=== PATIENT | female | born 1975 | race Caucasian/White ===

== ENCOUNTER 2023-05-03 03:08 | Day surgery (SDC) | payer BC, SELFPAY ==
[2023-04-18 08:17] VITALS: BMI 20.3
--- NOTE | 2023-05-02 14:03 | PM.HPGS ---
History of Present Illness History of Present Illness Consent: Risks, benefits, and alternatives have been discussed and questions answered. Patient agrees to proceed with procedure. Chief complaint: neoplasm screening Narrative: Naomie Miner is a 47 year old female Referred for colon cancer screening. Review of Systems Review of Systems: All systems reviewed & are unremarkable except as noted in HPI and below PMFSH Social History Social History Smoking status: Never smoker Alcohol intake: current Drinks per week: 5 Substance use type: does not use Living arrangements: with family Spiritual care concerns: No Meds Home Medications and Allergies Home Medications Medication Instructions Recorded Confirmed Type No Home Medications 04/18/23 04/18/23 History Allergies Allergy/AdvReac Type Severity Reaction Status Date / Time Sulfa (Sulfonamide Allergy Unknown RASH Verified 05/03/23 08:01 Antibiotics) Exam Const: General: alert Orientation/consciousness: patient oriented x3 Resp: Auscultation: clear to auscultation bilaterally Cardio: Rhythm: regular rhythm GI: GI Palp: Yes Soft to palpation and No Tenderness to palpation present (GI) Neuro: General: patient oriented x3 Assessment and Plan Assessment and plan (1) Colon cancer screening: Code(s): Z12.11 - Encounter for screening for malignant neoplasm of colon Status: Acute Assessment and Plan: Colonoscopy with possible biopsy or polypectomy or cautery or injection of substances.
[2023-05-03 08:02] VITALS: BP 93/70; PULSE 81; RESP 20; TEMP 36.6; O2SAT 99
--- NOTE | 2023-05-03 08:10 | P.PNAN_ITS ---
Anes - Initial Pre Proc Eval Procedure: Operation Date: 05/03/23 09:00 Proposed Procedures p Screening Colonoscopy - Luis Miguel Christensen MD Date/Time: 05/03/23 08:10 Surgeon: Luis Miguel Christensen MD Pre Op Diagnosis: neoplasm screening Patient Data Age: 47 Gender: F Height: 1.7 m Weight: 56.6 kg Last Vital Signs Temp 98 F 05/03/23 08:02 Pulse 81 05/03/23 08:02 Resp 20 05/03/23 08:02 BP 93/70 L 05/03/23 08:02 Pulse Ox 99 05/03/23 08:02 O2 Del Method Room Air 05/03/23 08:02 Allergies Allergy/AdvReac Type Severity Reaction Status Date / Time Sulfa (Sulfonamide Allergy Unknown RASH Verified 05/03/23 08:01 Antibiotics) Home Medications Medication Instructions Recorded Confirmed Type No Home Medications 04/18/23 04/18/23 History Patient hx anesthesia problems: none Family hx anesthesia problems: none Results Review: All pre-operative results and documents have been reviewed as part of the pre-operative evaluation. [facility] Social History Social History Smoking status: Never smoker Alcohol intake: current Drinks per week: 5 Substance use type: does not use Living arrangements: with family Spiritual care concerns: No Anes - Eval Final PreProcedure Day of Procedure 05/03/23 08:10 Patient weight: normal Heart: regular rate and rhythm Lungs: clear to auscultation Airway: Mallampati scale class II Neurological: alert and oriented Last oral intake: >/= 8 hours ASA classification: I Emergent: no Anesthetic plan: proceed Anesthesia type and monitoring: general GIVS and standard monitoring Results Review: All pre-operative results and documents have been reviewed as part of the pre- operative evaluation. Informed Consent: The patient's anesthetic plan and its attendant risks and benefits were discussed with the patient/family/POA. Questions were solicited and answers provided to the satisfaction of the patient/family/POA.
[2023-05-03] MEDS: LACTATED RINGERS 1,000 ML 150 ML IV CONT (08:15)
[2023-05-03] MEDS: SIMETHICONE ORAL SUSPENSION 20 MG/0.3 ML 30 ML BOTTLE 0.6 ML IRRIGATION (08:57)
[2023-05-03 09:05] VITALS: BP 84/55; PULSE 70; RESP 14; O2SAT 99
[2023-05-03 09:15] VITALS: BP 102/60; PULSE 71; RESP 23; O2SAT 100
[2023-05-03 09:25] VITALS: BP 104/68; PULSE 72; RESP 16; O2SAT 100
== END 2023-05-03 09:28 | disposition home or self-care (01) ==
PROVIDERS: PCP Internal Medicine; Visit Provider Internal Medicine Gastroenterology
PROC: 0DJD8ZZ Inspection of Lower Intestinal Tract, Via Natural or Artificial Opening Endoscopic (ICD-10-PCS; CPT 45378; principal; 2023-05-03 09:00)
DX: Z12.11 Encounter for screening for malignant neoplasm of colon (principal)
CPT/HCPCS: 45378; J2704; J7120

== ENCOUNTER 2024-08-08 07:47 | Outpatient (CLI) | payer BC, SELFPAY ==
--- NOTE | ~2024-08-08 | US_ITS ---
EXAMINATION: US abdomen limited DATE: 08/08/2024 08:18 INDICATION: ABN LAB RESULTS TECHNIQUE: Multiple grayscale and Doppler ultrasound images of limited portions of the abdomen were o btained. COMPARISON: None available. FINDINGS: The visualized portions of the pancreas are normal. The liver is normal with normal echogen icity and echotexture. No surface nodularity. Normal hepatopetal flow in the main portal vein. The ga llbladder is normal with no abnormal wall thickening, pericholecystic fluid or stones. The common kale e duct measures 3 mm. There was no sonographic Harvey sign. IMPRESSION: Normal limited abdominal ultrasound findings. Reviewed, dictated and finalized at location [facility]
== END 2024-08-08 07:48 | disposition home or self-care (01) ==
LOC: MICIMG 07:48
PROVIDERS: PCP Internal Medicine; Visit Provider Internal Medicine
DX: R89.9 Unspecified abnormal finding in specimens from other organs, systems and tissues (principal)
CPT/HCPCS: 76705

== ENCOUNTER 2024-09-13 08:23 | Emergency (ER) | payer BC, SELFPAY ==
[2024-09-13 08:31] VITALS: BP 119/81; PULSE 84; RESP 18; TEMP 36.8; O2SAT 100
[2024-09-13] MEDS: DACRIOSE EYE IRRIGATION 118 ML BOTTLE LEFT EYE (08:54)
[2024-09-13] MEDS: TETRACAINE HCL 0.5% OPHTH SOLN 4 ML BTL 1 DROP LEFT EYE (08:54)
[2024-09-13] MEDS: FLUORESCEIN SOD 1 MG/STRIP LEFT EYE (08:54)
--- NOTE | 2024-09-13 08:58 | ED_ITS ---
HPI - Eye Problem General Chief complaint: Eye Problems Stated complaint: Eye Irritation Time Seen by Provider: 09/13/24 08:37 Source: patient and RN notes reviewed Mode of arrival: ambulatory Limitations: no limitations History of Present Illness HPI Narrative: Patient presents today complaining of left eye irritation, photophobia, watering, and matting. Symptoms began 2 days ago. Denies vision changes. She has tried some [id number]-[id number] eyedrops without relief. Pain increases when she opens her eye. Denies any injury or trauma to the eye area. Patient wears glasses Related Data Home Medications ?Medication ?Instructions ?Recorded ?Confirmed ?Last Taken ?Type No Home Medications 04/18/23 09/13/24 Unknown History Allergies Allergy/AdvReac Type Severity Reaction Status Date / Time Sulfa (Sulfonamide Allergy Unknown RASH Verified 09/13/24 08:35 Antibiotics) Review of Systems Review of Systems: CONSTITUTIONAL: Denies body aches, fever, chills, or sweats. EYES: Left eye watering, irritation, photophobia ENT: Denies rhinorrhea, congestion, sore throat, or otalgia. CARDIOVASCULAR: Denies chest pain, palpitations, or edema. RESPIRATORY: Denies cough or dyspnea. GASTROINTESTINAL: Denies abdominal pain, nausea, vomiting, or diarrhea. GENITOURINARY: Denies dysuria or hematuria. SKIN: Denies rash, itching, or wounds. MUSCULOSKELETAL: Denies back pain, joint pain, or myalgia. NEUROLOGIC: Denies headache, numbness, tingling, or weakness. PSYCH: Denies depression or anxiety. PMFSH Social History Social History Smoking status: Never smoker Alcohol intake: current Drinks per week: 5 Substance use type: does not use Living arrangements: with family Spiritual care concerns: No Comments At time of signature, I have reviewed and agree with nursing past medical, surgical, social and family history unless otherwise noted. Please see nursing chart for further information. There is no relevant family history pertinent to the presenting complaint Exam Narrative: GENERAL: Well-appearing, well-nourished, and in no acute distress. HEAD: Normocephalic, atraumatic. EYES: EOMI. PERRL. Right eye normal. Left eye: Tearing, mildly injected conjunctiva and mild swelling of the lower lid.+ fluorescein uptake. See procedure note. ENT: Mucous membranes pink and moist. NECK: Normal AROM. CHEST: No respiratory distress. EXTREMITIES: Normal range of motion. No edema. SKIN: Warm, dry, no rash. Capillary refill normal. Normal skin turgor. NEURO: No focal deficits. Alert and oriented x3. Gait steady. PSYCH: Normal affect. No signs of depression or anxiety. Course Course Level of Care: Express Care Visit Vital Signs Vital signs: Vital Signs Temperature 98.2 F 09/13/24 08:31 Pulse Rate 84 09/13/24 08:31 Respiratory Rate 18 09/13/24 08:31 Blood Pressure 119/81 09/13/24 08:31 Pulse Oximetry 100 09/13/24 08:31 Temperature 98.2 F 09/13/24 08:31 Pulse Rate 84 09/13/24 08:31 Respiratory Rate 18 09/13/24 08:31 Blood Pressure 119/81 09/13/24 08:31 Pulse Oximetry 100 09/13/24 08:31 Reviewed Procedures Other Procedure Procedure 1: Other Procedure: Left eye was anesthetized with 1 drop of tetracaine and anesthesia was achieved. The eye was flushed with eye wash. Cornea was dyed with fluorescein and 2 abrasions were noted at the 9 o'clock position of the iris. Pt tolerated procedure well. MDM - Eye Problem MDM Narrative Medical decision making narrative: Two small corneal abrasions noted to the 9 o'clock position of the iris. Patient will be started on some ofloxacin drops and recommend following up with her eye doctor to ensure proper healing. Patient agrees with plan. Anticipatory guidance given. Differential Diagnosis Differential diagnosis: Likely corneal abrasion, conjunctivitis and corneal ulcer Critical Care Time Critical Care Time Critical Care Time: No Discharge Plan Discharge Clinical Impression: Abrasion of cornea, left Qualifiers: Encounter type: initial encounter Qualified Code(s): S05.02XA - Injury of conjunctiva and corneal abrasion without foreign body, left eye, initial encounter Patient Disposition: Home, Self-Care Condition: Stable Instructions: Corneal Abrasion (ED) Additional Instructions: Your exam shows 2 small corneal abrasions. Please use the eyedrops as directed. Try not to rub or scratch your eye as you could make these worse. Take Tylenol or ibuprofen for pain. Please follow-up with your eye doctor within the next week to ensure proper healing. Your blood pressure was elevated above 120/80 today at Urgent Care. This puts you above the threshold for follow up. Please schedule a followup visit with your personal physician as soon as possible, for further evaluation and treatment. Even blood pressure exceeding 120/80 may indicate pre-hypertension. Patient Language: Bel[place]an Prescriptions: New ofloxacin 0.3 % drops 1 drp LEFT EYE QID 7 Days Qty: 5 0RF No Action No Home Medications Follow-up/Referrals: Charlie,MD Andrew [Primary Care Provider] - Time of Disposition: 09:02
== END 2024-09-13 09:05 | disposition home or self-care (01) ==
PROVIDERS: Emergency Provider Nurse Practitioner; PCP Internal Medicine
DX: S05.02XA Injury of conjunctiva and corneal abrasion without foreign body, left eye, initial encounter (principal); X58.XXXA Exposure to other specified factors, initial encounter
CPT/HCPCS: 99213; A9270; G0463

== ENCOUNTER 2025-05-28 21:44 | Emergency (ER) | payer BC, SELFPAY ==
--- OUTSIDE RECORDS SUMMARY | 2014-08-03 02:00 | XMS_ITS | Continuity of Care Document ---
Author Organization [email or web address] Address [address] [place] [address] [address] [place] [address] Phone Care Team Providers Care Dance Director Name Role Phone Aruna PT, MS, Olvin Unavailable Unavailable Procedures Procedure Date PT RE-EVALUATION THERAPEUTIC EXERCISES NEUROMUSCULAR RE-ED HOT/COLD PACK ELECTRIC STIMULATION UNATT THERAPEUTIC EXERCISES NEUROMUSCULAR RE-ED HOT/COLD PACK ELECTRIC STIMULATION UNATT THERAPEUTIC EXERCISES NEUROMUSCULAR RE-ED HOT/COLD PACK ELECTRIC STIMULATION UNATT THERAPEUTIC EXERCISES NEUROMUSCULAR RE-ED MANUAL THERAPY HOT/COLD PACK ELECTRIC STIMULATION UNATT THERAPEUTIC EXERCISES NEUROMUSCULAR RE-ED MANUAL THERAPY HOT/COLD PACK ELECTRIC STIMULATION UNATT THERAPEUTIC EXERCISES NEUROMUSCULAR RE-ED MANUAL THERAPY HOT/COLD PACK ELECTRIC STIMULATION UNATT PT RE-EVALUATION THERAPEUTIC EXERCISES NEUROMUSCULAR RE-ED MANUAL THERAPY HOT/COLD PACK ELECTRIC STIMULATION UNATT THERAPEUTIC EXERCISES NEUROMUSCULAR RE-ED MANUAL THERAPY HOT/COLD PACK ELECTRIC STIMULATION UNATT THERAPEUTIC EXERCISES NEUROMUSCULAR RE-ED MANUAL THERAPY HOT/COLD PACK ELECTRIC STIMULATION UNATT THERAPEUTIC EXERCISES NEUROMUSCULAR RE-ED MANUAL THERAPY HOT/COLD PACK ELECTRIC STIMULATION UNATT THERAPEUTIC EXERCISES MANUAL THERAPY HOT/COLD PACK ELECTRIC STIMULATION UNATT THERAPEUTIC EXERCISES MANUAL THERAPY HOT/COLD PACK ELECTRIC STIMULATION UNATT THERAPEUTIC EXERCISES MANUAL THERAPY HOT/COLD PACK ELECTRIC STIMULATION UNATT THERAPEUTIC EXERCISES MANUAL THERAPY HOT/COLD PACK ELECTRIC STIMULATION UNATT THERAPEUTIC EXERCISES MANUAL THERAPY HOT/COLD PACK ELECTRIC STIMULATION UNA PT EVALUATION THERAPEUTIC EXERCISES MANUAL THERAPY HOT/COLD PACK ELECTRIC STIMULATION UNATT Advance Directives Directive Yes / No Effective Date File Name No Information Encounters Encounter Description Practice Location Reason(s) For Visit Diagnoses Date Provider Providers Copied on Encounter [facility], [id number], tel:[phone] [place] No Information Dec-0 9-201 4 Aruna Bah. [address] [facility], [facility] [address], [place], [facility], [place]. tel: [phone] [facility], [place], [id number], tel:[phone] [place] No Information Dec-0 3-201 4 Israel Coyne. [address] [facility], [address], [place], [facility], [place]. tel: [phone] [facility], [place], [place], [address], [place] tel: [phone] [place] No Information Nov-2 4-201 4 Aruna Olvin. [address] [place] [address], [address], [place], [address], [place]. tel: [phone] [facility] [address], [place], [place], [id number], [place] tel:[phone] [place] No Information Nov-1 9-201 4 Aruna Olvin. [address] [place] [address], [address], [place], [address], [place]. tel: [phone] [facility] [address], [place], [place], [id number], [place] tel:[phone] [place] No Information Nov-1 7-201 4 Aruna Olvin. [address] [place] [address], [address], [place], [address], [place]. tel: [phone] [facility] [address], [place], [place], [id number], [place] tel:[phone] [place] No Information Nov-1 2-201 4 Aruna Olvin. [address] [place] [address], [address], [place], [address], [place]. tel: [phone] [facility] [address], [place], [place], [address], [place] tel:[phone] [place] No Information Nov-1 0-201 4 Aruna Olvin. [address] [place] [address], [address], [place], [address], [place]. tel: [phone] [address], [place], [place], [address], [place] tel:[phone] [place] No Information Nov-0 7-201 4 Aruna Olvin. [address] [place] [address], [address], [place], [address], [place]. tel: [phone] [address], [place], [place], [address], [place] tel:[phone] [place] No Information Nov-0 4-201 4 Aruna Olvin. [address] [place] [address], [address], [place], [facility], [place]. tel: [phone] [place] [address] [address], [place], [place], [address], [place] tel:[phone] [place] No Information Oct-3 1-201 4 Aruna Olvin. [address] [place] [address], [address], [place], [facility], [place]. tel: [phone] [place] [address] [address], [place], [place], [address], [place] tel:[phone] [place] No Information Oct-2 8-201 4 Aruna Olvin. [address] [place] [address], [address], [place], [facility], [place]. tel: [phone] [address], [place], [place], [address], [place] tel:[phone] [place] No Information Oct-2 7-201 4 Aruna Olvin. [address] [place] [address], [address], [place], [facility], [place]. tel: [phone] [address], [place], [place], [address], [place] tel:[phone] [place] No Information Oct-2 3-201 4 Aruna Olvin. [address] [place] [address], [address], [place], [facility], [place]. tel: [phone] [place] [address] [address], [place], [place], [address], [place] tel:[phone] [place] No Information Oct-2 2-201 4 Aruna Olvin. [address] [place] [address], [address], [place], [facility], [place]. tel: [phone] [address], [place], [place], [address], [place] tel:[phone] [place] No Information 0 4 Aruna Bah. [address] [facility], [address], [place], [place], [facility], . tel: [phone] [facility] [place], [address] [facility] [address], [place], [place], [address], [place] [phone] [place] Pain in joint involving shoulder region 4 Aruna Bah. [address] [facility], [address], [place], [address], [place]. tel: [phone] Family History Family Member Type Diagnosis Age At Onset No Information Payers Payer name Insurance type Covered alliance party ID Soniasarah beth kellprecious(s) [facility] [id number] [place] [id number] Social History Type Description Quantity Date Captured Comments Sex Female Smoking Status No Information Chief Complaint And Reason For Visit No Information Reason For Referral Reason For Referral No Information History Of Present Illness Encounter Date Complaint History Of Prese nt Illness No Information Functional Status Date Functional Assessmen t No Information Instructions Date Instruction Additional Infor mation No Information Assessments Type Assessment Date No Information Patient Care Teams Name Effective Dates (start - stop) Status Members No Information
[2025-05-28 21:45] VITALS: BP 112/80; PULSE 84; RESP 16; TEMP 36.3; O2SAT 98
--- OUTSIDE RECORDS SUMMARY | 2025-05-28 23:49 | XMS_ITS | Clinical Summary ---
Author Organization [facility] [address] Address [address] [place] [address] Care Team Providers Care Night Filler Name Role Phone Andrew Guerra DO Primary Care Provider [phone] Allergies Active Allergy Reactions Criticality Noted Date Comments Prochlorperazine Unknown Sulfa (Sulfonamide Antibiotics) Medications levonorgestreL (Mirena) IUD 1 each by intrauterine route once 9 Active estradioL (VAGIFEM) 10 mcg tablet Insert 1 tablet (10 mcg total) into the vagina 2 (two) times a week When first starting therapy, use nightly for 2 weeks 21 tablet 3 5 05/27/20 26 Active estradioL (VIVELLE-DOT) 0.075 mg/[address] 1 patch on the skin 2 (two) times a week 24 patch 3 5 Active Active Problems Problem Noted Date Diagnosed Date Double vision 02/19/2020 Assessment & Plan (02/19/2020 1:28 PM CDT): 44 year old who reports double vision that is transient, tends to occur more when looking at things very close, tends to only occur when not wearing her glasses. Has generally been getting better/resolved since Aug this year. Neurologic exam is currently normal, no extraocular movement abnormalities, skew deviation. Etiology is unclear at this point and exam is normal, as is Brain MRI. Discussed considerations including idiopathic CN palsy, decompensated phoria, myasthenia. Given improvement/resolution she is in agreement that there is likely no further testing to pursue but wanted to close the loop given referral here and make sure no more serious concerns to consider, which given improvement I did not think there were, but happy to re-evaluate if change/recurrence/new symptoms. She will call if change/issue. Encounters Date Type Department Care Team Description 05/25/2025 2:30 PM CDT Office Visit [facility] [address] [facility] [address], [place] [address] Chase Diop MD Menopause (Primary Dx) 05/07/2025 Telephone [facility] [address] [facility] [address], [place] [address] Payton Garnica Hot Flashes 04/08/2025 Results Follow-Up [facility] [facility] [address], [place] [address] Naomy Parekh, RN Screening Mammogram Bilateral W Frandy 04/01/2025 4:24 PM CDT - 04/01/2025 11:59 PM CDT Hospital Encounter [facility] [address] [place], [place] [id number] Screening mammogram, encounter for Discharge Disposition: Discharge to home or self care from Last 3 Months Social History Tobacco Use Types Packs/Day Years Used Date Smoking Tobacco: Never Smokeless Tobacco: Never Alcohol Use Standard Drinks/Week Comments Yes 14 (1 standard drink = 0.6 oz pu re alcohol) AUDIT-C Answer Date Recorded Q1: How often do you have a drink containing alc ohol? 2-3 times a week 05/25/2025 Q2: How many drinks containi ng alcohol do you have on a typical day when you are drinking? 7 to 9 05/25/2025 Q3: How often do you have si x or more drinks on one occasion? 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[employer] Gender Identity Not on file Sexual Orientation Not on file Obstetrics History Para Term AB IAB SAB Ectopic Multiple Livin g Live Births 2 2 2 2 2 Date Outcome GA Total Labor Labor/2nd/3rd Weight Sex Type Anes PTL [place] A1 A5 Name Clin 2005 Term F Vaginal Livin g Madely n 2006 Term M Vaginal Justo Fitzpatrick Last Filed Vital Signs Vital Sign Reading Time Taken Comments Blood Pressure 108/62 05/25/2025 2:33 PM CDT Pulse 80 02/19/2020 12:54 PM CDT Temperature - - Respiratory Rate 16 02/19/2020 12:54 PM CDT Oxygen Saturation - - Inhaled Oxygen Concentration - - Weight 59 kg (130 lb) 05/25/2025 2:33 PM CDT Height 170.2 cm (5' 7) 05/25/2025 2:33 PM CDT Body Mass Index 20.36 05/25/2025 2:33 PM CDT Plan of Treatment Health Maintenance Due Date Last Done Comments Cervical Cancer Screening 1973 Colon Cancer Screening-Colonoscopy 1973 Depression Screening 1973 Hepatitis C Screening 1973 DTaP/Tdap/Td Vaccine (1 - Tdap) 1984 Hepatitis B Screening 1991 Zoster Vaccine (1 of 2) 2023 Influenza Vaccine (#1) 2025 , 06/20/2020, 07/08/2019 Regular Well Visit/Exam 18-64 12/14/2025 12/14/2024 Breast Cancer Screening-Mammogram 04/01/2026 04/01/2025, 03/31/2024, 12/26/2022, Additional history exists Pneumococcal vaccine <65 Aged Out No longer eligible based on patient's age to complete this topic Procedures Procedure Name Priority Date/Time Associated Diagnosis Comments SCREENING MAMMOGRAM BILATERAL W FRANDY Schedule Routine, Read Routine (OP Routine) 04/01/2025 4:51 PM CDT Screening mammogram, encounter for from Last 3 Months Results * Screening Mammogram Bilateral W Frandy (04/01/2025 4:51 PM CDT) Anatomical Region Laterality Modality Breast Bilateral Mammography Impressions 04/01/2025 5:13 PM CDT Bilateral No evidence of malignancy in either breast. OVERALL BI-RADS FINAL ASSESSMENT: 1 - Negative RECOMMENDATION: Recommend bilateral annual screening mammography. Narrative 04/01/2025 5:13 PM CDT EXAMINATION: Screening Mammogram Bilateral W Frandy: 04/01/2025 COMPARISON: Relevant prior studies available at the time of interpretation were reviewed, including the most recent mammogram on: 03/31/2024. TECHNIQUE: Mammography was performed with 2D and 3D digital breast tomosynthesis (DBT) images. CAD was utilized. BREAST PARENCHYMAL COMPOSITION: There are scattered areas of fibroglandular density. FINDINGS: No suspicious mass, calcification, or architectural distortion is seen in either breast. There has been no suspicious interval change. us Self Screening Mammogram IMG MAMMO PROCEDURES Fi nal Result from Last 3 Months Insurance enrich-in [employer]an OOS [employer] ANTHEM ACCESS ANTHEM ACCESS ANTHEM ACCESS Care Teams Night Filler Relationship Specialty Start Date End Date Andrew Guerra DO [address] [place] [address] PCP - General 07/08/14
--- OUTSIDE RECORDS SUMMARY | 2025-05-28 23:50 | XMS_ITS | Clinical Summary ---
Author Organization [email or web address] Address [address] [place] [address] Care Team Providers Care Log Deckman Name Role Phone Andrew Guerra MD Primary Care Provider [phone] Source Comments [email or web address],non-owned Affiliates and Associated Physician Practices is amultiple site organization consisting of ambulatory clinics and hospital sitesin [place], [place], [place] and [place]. This disclosure is being madepursuant to the Care Everywhere program and may not contain all information available regarding this patient. Last updated [facility] [email or web address] Allergies Active Allergy Reactions Criticality Noted Date Comments Sulfa Drugs 03/13/2017 Medications * Be aware that medications may not be up to date on this document. Alwaysverify current medications with the patient. levonorgestrel (MIRENA, 52 MG,) 20 MCG/24HR IUD 1 Device by Intrauterine route as directed Active Social History Tobacco Use Types Packs/Day Years Used Date Smoking Tobacco: Never Smokeless Tobacco: Never Comments No Sex and Gender Information Value Date Recorded Sex Assigned at Not on file Legal Sex Female 2:22 AM CDT Gender Identity Not on file Sexual Orientation Not on file Last Filed Vital Signs Vital Sign Reading Time Taken Comments Blood Pressure 98/60 08/14/2018 11:31 AM [employer] Pulse 98 08/14/2018 11:31 AM [employer] Temperature 36.8 C (98.3 F) 08/14/2018 11:31 AM [employer] Respiratory Rate 16 08/14/2018 11:31 AM [employer] Oxygen Saturation 98% 08/14/2018 11:31 AM [employer] Inhaled Oxygen Concentration - - Weight 58.1 kg (128 lb) 08/14/2018 11:31 AM [employer] Height 170.2 cm (5' 7) 08/14/2018 11:31 AM [employer] Body Mass Index 20.05 08/14/2018 11:31 AM [employer] Plan of Treatment Health Maintenance Due Date Last Done Comments COLOGUARD (AGES 45-75) - COL ON CA SCREENING 1973 COLON MONITORING 1973 COLONOSCOPY - COLON CA SCREENING 1973 CT COLONOGRAPHY - COLON CA SCREENING 1973 Colorectal Cancer Screening 1973 FIT - COLON CA SCREENING 1973 FLEX SIG - COLON CA SCREENING 1973 LIPID TESTING 1973 HIV SCREENING 1988 HEPATITIS C SCREENING 09/28/1991 DTAP/TDAP/TD VACCINES (1 - Tdap) 1992 HEPATITIS B VACCINE (1 of 3 - 19+ 3-dose series) 1992 MAMMOGRAM 09/16/2019 09/16/2017 PNEUMOCOCCAL VACCINE 50+ (1 of 1 - PCV) 2023 ZOSTER VACCINE (1 of 2) 2023 DEPRESSION SCREENING 08/26/2024 COVID-19 VACCINE (1 - 2023-2 5 season) 2025 INFLUENZA VACCINE (#1) 2025 HIB VACCINE Aged Out No longer eligi ble based on patient's age to complete this topic HPV VACCINE Aged Out No longer eligi ble based on patient's age to complete this topic MENINGOCOCCAL (Group B) VACC INE SHARED DECISION-MAKING Aged Out No longer eligibl e based on patient's age to complete this topic MENINGOCOCCAL GROUPS A/C/Y/W VACCINE Aged Out No longer eligible b ased on patient's age to complete this topic Insurance [facility] Care Teams Log Deckman Relationship Specialty Start Date End Date Andrew Guerra MD PCP - General Internal Medicine 03/13/17
--- OUTSIDE RECORDS SUMMARY | 2025-05-28 23:50 | XMS_ITS | Data Portability ---
Author Organization [place] [facility] [employer], Main Office Address [address] [place] [address] Assessment Encounter Date Assessment Date Assessment LastModified by Organization Details LastModified Time 10/25/2022 10/25/2022 Refill meds see me in a year [email or web address] Not available 12/02/2022 14:14:46 Plan of Treatment Reminders Order Date Submit Date Provider Last Modified By Organization Details Last Modified Time Details Appointments None recorded. Lab CBC w/ auto diff 2022 023 [facility], [address] [place] [address], [id number], 3 09:32:17 CMP, serum or plasma 2022 023 [facility], [address] [place] [address], [address], 3 09:32:18 lipid panel, serum 2022 023 [facility], [address] [place] [address], [address], 3 09:32:18 Referral None recorded. Procedures None recorded. Surgeries None recorded. Imaging None recorded. Medication Orders valacyclovi r 500 mg tablet 2022 023 [email or web address] [id number], [address] [place], [address], 3 15:50:55 Patient TargetsNo targets recorded. Patient InstructionsNo instructions recorded. Reason for Referral None Reported. Results Created Date Observation Date Name Description Value Unit Range Abnormal Flag Note LastModifiedBy Organization Detail LastModifiedTime Result Notes None recorded. Problems Name Problem SNOMED Code Status Onset Date Resolution Date Notes Provider Name and Address Organization Details Recorded Time Acute sinusitis 39752486 Active Not Available [facility] 3 10:45:34 Ganglion of joint 38976116 Active Not Available [facility] 3 10:45:35 Thyroid nodule 265973729 Active 020 Not Available [facility] 3 10:45:35 Sore mouth 060614077 Active 022 Not Available [facility] 3 10:45:34 Problem Notes None recorded. Medical Equipment None Reported. Allergies Allergen ID Allergen Name Allergen Category Reaction Reaction Severity Criticality Documentation Date Start Date Code Code System Note Provider Name and Address Organization Details Recorded Time 85387 Substance with sulfonami de structure and antibacte rial mechanism of action (substanc e) medicatio n rash Not available Not available 10/24/2022 52061 8003 SNOMED Not Available [facility] 3 10:51:25 Medications Name Sig Start Date Stop Date Status Note LastModified by Organization Details LastModified Time spironolacton e 100 mg tablet 10/25 completed Not Available Not Available Not Available Zithromax Z-Sarkis 250 mg tablet Take 1 tablet by oral route around the clock for 6 days. 11/03 completed Not Available Not Available Not Available penicillin V potassium 500 mg tablet 04/01 completed Not Available Not Available Not Available valacyclovir 500 mg tablet Take 1 tablet twice a day by oral route for 7 days. active Not Available Not Available No t Available Mirena 2017 active Not Available Not Available Not Avai lable Vitals Date Recorded Body height Body mass index (BMI) Body weight Body temperature Heart rate Systolic And Diastolic Provider Name and Address Organization Details Last Updated DateTime 3 170.18 cm 20.2 kg/m2 98899.4 2 g 98.4 [degF] 98 /min 96/64 mm[Hg] Estephanie henderson RN [place] [facility] 3 15:24:33 Social History Question Answer Notes LastModified by Organizat ion Details LastModified Time Tobacco Smoking Status Never Smoker Estephanie Harper RN [facility], [place] [facility] 10/25/2022 15:18:57 Do You Have An Advance Directive? No Information not available 10/25/2022 Is Blood Transfusion Acceptable In An Emergency? Yes Information not available 10/25/2022 What Is Your Level Of Caffeine Consumption? Moderate Information not available 10/25/2022 In The 14 Days Before Symptom Onset, Have You Had Close Contact With A Laboratory-confi rmed COVID-19 While That Case Was Ill? No Information not available 10/25/2022 In The 14 Days Before Symptom Onset, Have You Had Close Contact With A Person Who Is Under Investigation For COVID-19 While That Person Was Ill? No Information not available 10/25/2022 What Type Of Diet Are You Following? REGULAR Information not available 10/25/2022 What Is The Highest Grade Or Level Of School You Have Completed Or The Highest Degree You Have Received? [id number] Information not available 10/25/2022 How Many Days Of Moderate To Strenuous Exercise, Like A Brisk Walk, Did You Do In The Last 7 Days? 4 Information not available 10/25/2022 Have There Been Any Changes To Your Family Or Social Situation? No Information not available 10/25/2022 What Is The Fluoride Status Of Your Home? Fluoridated Information not available 10/25/2022 Are There Any Guns Present In Your Home? No Information not available 10/25/2022 Do You Use Insect Repellent Routinely? Yes Information not available 10/25/2022 Where Do You Live? [facility] Information not available 10/25/2022 Do You Have A Medical Power Of Asbestos Coverer? No Information not available 10/25/2022 What Was The Date Of Your Most Recent Tobacco Screening? 10/25/2022 Information not available 10/25/2022 How Many Children Do You Have? 2 Information not available 10/25/2022 Do You Have Any Pets? Yes Information not available 10/25/2022 Do You Use Protection During Sex? No Information not available 10/25/2022 What Is Your Relationship Status? Information not available 10/25/2022 Do You Use Your Seat Belt Or Car Seat Routinely? Yes Information not available 10/25/2022 Are You Sexually Active? Yes Information not available 10/25/2022 Do You Have Smoke And Carbon Monoxide Detectors In Your Home? Yes Information not available 10/25/2022 Are You Passively Exposed To Smoke? No Information not available 10/25/2022 Are There Any Smokers In Your House? No Information not available 10/25/2022 Do You Use Sunscreen Routinely? Yes Information not available 10/25/2022 Has Tobacco Cessation Counseling Been Provided? No Information not available 10/25/2022 Have You Recently Traveled Abroad? Yes [facility] Aug 2022 Information not available 10/25/2022 Do You Have Any Dietary Restrictions? No Information not available 10/25/2022 Sex: Unknown Functional Status Question Answer Note LastModified by Organizat ion Details LastModified Time Do you use any illicit or recreational drugs? No Information not available 10/25/2022 Do you or have you ever used any other forms of tobacco or nicotine? No Information not available 10/25/2022 What is your level of alcohol consumption? Occasional Information not available 10/25/2022 Are you currently employed? 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 Moderate Information not available 10/25/2022 Mental Status Question Answer Note LastModified by Organization D etails LastModified Time Do you feel stressed (tense, restless, nervous, or anxious, or unable to sleep at night)? [id number] Information not available 10/25/2022 Family History Nothing Reported Notes:pt adopted Medical History Condition Response HAVE YOU BEEN HOSPITALIZED OR SEEN IN [facility] IN THE PAST YEAR ? N Gynecological HistoryNo gynecological history recorded. Obstetrics History GPAL:G 0 P 0 0 0 0 Immunizations Vaccine Type Date Status Note Provider Nam e and Address Organization Details Recorded Time Influenza, split virus, trivalent, preservative 0 completed Not Available [facility] 10/24/2022 10:51:16 Influenza, split virus, quadrivalent, preservative 9 completed Not Available [facility] 10/24/2022 10:51:16 Past Encounters Encounter ID Performer Location Encounter Start Date Encounter Closed Date Diagnosis/Indication Diagnosis SNOMED-CT Code Diagnosis ICD10 Code Diagnosis IMO Codes Diagnosis Note [id number] Andrew Guerra MD [facility] Internal Med Gennaro eugene [address] [facility] , [facility] [place] [address] 10/25/2022 15:02:26 10/25/2022 15:42:36 Adult health examination 673355256 Z00.00 Renewal of prescription 844432826 Z76.0 Health Concerns Section Related Observation LastModified by Organization Detai ls LastModified Time None Recorded Concern Status LastModified by Organization Details LastModified Time None Recorded Advance Directives Directive N: Payers Insurance Date Sequence Insurance Name Policy Number Policy Amezquita Covered Member ID Amezquita Member ID Guarantor Name 12/04/2022 1 [place] [id number] F Naomie Miner [id number] Naomie Miner Notes Date Note Type Note Provider Name and Address Organization Details Recorded Time 10/25/2022 text/html She has overall been doing fine needs a refill of her valacyclovir Andrew Guerra MD [address] [facility], [place] [address], [place], [address], [facility] Clifford Thames [facility] 12/02/2022 14:15:05 OBGyn Episode No OBEpisode recorded.
--- OUTSIDE RECORDS SUMMARY | 2025-05-28 23:50 | XMS_ITS | Data Portability ---
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 Healthy lifestyle choices discussed [email or web address] Not available 04/27/2024 12:19:15 Plan of Treatment Reminders Order Date Submit Date Provider Last Modified By Organization Details Last Modified Time Details Appointments None recorded . Lab CBC w/ auto diff 024 04/23/20 24 [facility], [address], [place], [address], 4 09:33:02 CMP, serum or plasma 024 04/23/20 24 [facility], [address], [place], [address], 4 09:33:02 lipid panel, serum 024 04/23/20 24 [facility], [address], [place], [address], 4 09:33:02 Referral None recorded . Procedures None recorded . Surgeries None recorded . Imaging None recorded . Medication Orders None recorded . Patient TargetsNo targets recorded. Patient InstructionsNo instructions recorded. Reason for Referral None Reported. Results Created Date Observation Date Name Description Value Unit Range Abnormal Flag Note LastModifiedBy Organization Detail LastModifiedTime 05/04/20 24 03/31/2024 MAMMO , scree dorothy, tomos ynthe sis, bilat eral No observ ation record ed. [email or web address] [facility] [address] [facility], [place], [address], 05/05/2024 09:33:03 08/08/20 24 08/08/2024 US, liver No observ ation record ed. [facility] [address], [place], [address], 08/12/2024 10:07:01 Result Notes None recorded. Problems Name Problem SNOMED Code Status Onset Date Resolution Date Notes Provider Name and Address Organization Details Recorded Time Adult health examination Active 2023 SHARITA Salazar, [facility] 4 11:47:12 Laboratory test result abnormal 599458075 Active 2023 SHARITA Salazar, [facility] 4 16:43:09 Problem Notes None recorded. Procedures Surgical History Date Name Laterality Status Provider Name and Address Organization Details Recorded Time 3 colonoscopy completed Melissa Ignacio [facility] 05/05/2024 09:23:18 Imaging Results None recorded. Procedure Notes None recorded. Medical Equipment None Reported. Allergies Allergen ID Allergen Name Allergen Category Reaction Reaction Severity Criticality Documentation Date Start Date Code Code System Note Provider Name and Address Organization Details Recorded Time 956584 Substance with sulfonami de structure and antibacte rial mechanism of action (substanc e) medicatio n Not available Not available Not available 04/23/2024 95872 8003 SNOMED SHARITA Whalen, [facility] 4 11:01:17 Medications Name Sig Start Date Stop Date Status Note LastModified by Organization Details LastModified Time valacyclovir 500 mg tablet TAKE 1 TABLET BY MOUTH TWICE A DAY FOR 7 DAYS 025 active Not Available Not Available Not Avai lable Mirena active Not Available Not Availa ble Not Available Vitals Date Recorded Body height Body mass index (BMI) Body weight Heart rate Oxygen saturation Oxygen saturation in Arterial blood by Pulse oximetry Systolic And Diastolic Provider Name and Address Organization Details Last Updated DateTime 170.18 cm 20.2 kg/m2 50133.4 2 g 73 /min 97 % 97 % 110/70 mm[Hg] Esther Valdes [place] [facility] 11:00:49 Social History Question Answer Notes LastModified by Organizat ion Details LastModified Time Tobacco Smoking Status Never Smoker SHARITA Whalen, [place] - [facility] 04/23/2024 11:03:46 Do You Have An Advance Directive? No Information n ot available 04/23/2024 Are You Blind Or Do You Have Difficulty Seeing? No Information n ot available 04/23/2024 What Is Your Level Of Caffeine Consumption? Occasional Information not available 04/23/2024 In The 14 Days Before Symptom Onset, Have You Had Close Contact With A Laboratory-confirm ed COVID-19 While That Case Was Ill? No Information n ot available 04/23/2024 In The 14 Days Before Symptom Onset, Have You Had Close Contact With A Person Who Is Under Investigation For COVID-19 While That Person Was Ill? No Information not available 04/23/2024 Have You Been To An Area Known To Be High Risk For COVID-19? No Information not available 04/23/2024 Are You Deaf Or Do You Have Serious Difficulty Hearing? No Information not available 04/23/2024 What Type Of Diet Are You Following? REGULAR Information n ot available 04/23/2024 Are There Any Guns Present In Your Home? No Information not available 04/23/2024 What Was The Date Of Your Most Recent Tobacco Screening? 04/23/2024 Information not available 04/23/2024 Do You Use Your Seat Belt Or Car Seat Routinely? Yes Information not available 04/23/2024 Do You Have Smoke And Carbon Monoxide Detectors In Your Home? Yes Information not available 04/23/2024 Do You Use Sunscreen Routinely? Yes Information not available 04/23/2024 Sex: Female Functional Status Question Answer Note LastModified by Organizat ion Details LastModified Time Do you use any illicit or recreational drugs? No Information not available 04/23/2024 Do you or have you ever used any other forms of tobacco or nicotine? No Information not available 04/23/2024 What is your level of alcohol consumption? Occasional Information not available 04/23/2024 Are you currently employed? Yes Information not available 04/23/2024 Are you able to care for yourself independently? Yes Information not available 04/23/2024 What is your exercise level? Occasional Information not available 04/23/2024 Mental Status Question Answer Note LastModified by Organization D etails LastModified Time Do you feel stressed (tense, restless, nervous, or anxious, or unable to sleep at night)? [id number] Information not available 04/23/2024 Family History Nothing Reported Notes:Adopted Medical History Condition Response Coronary Artery Disease N Other N High Blood Pressure N Atrial Fibrillation N Thyroid Problems N Kidney or Bladder Problems N Depression N COPD N Blood Clots N GI Problems N Skin Problems N Anemia N Heart Attack ([place]) N Anxiety Disorder N Diabetes N Muscle, Joint, or Bone Problems N Seizures/Epilepsy N Have you had a colonoscopy in the last 1 0 years? Y Cancer N Stroke N Allergies N Asthma N High Cholesterol N Hepatitis N Liver Disease N Headaches N Osteoporosis N Heart Failure N Gynecological HistoryNo gynecological history recorded. Obstetrics History GPAL:G 0 P 0 0 0 0 Past Encounters Encounter ID Performer Location Encounter Start Date Encounter Closed Date Diagnosis/Indication Diagnosis SNOMED-CT Code Diagnosis ICD10 Code Diagnosis IMO Codes Diagnosis Note [id number] Andrew Guerra MD [facility] [place] [address] [place] [address] 04/23/2024 10:21:26 04/23/2024 11:41:01 Adult health examination 925078763 Z00.00 Health Concerns Section Related Observation LastModified by Organization Detai ls LastModified Time None Recorded Concern Status LastModified by Organization Details LastModified Time None Recorded Advance Directives Directive N: Payers Insurance Date Sequence Insurance Name Policy Number Policy Amezquita Covered Member ID Amezquita Member ID Guarantor Name 04/28/2024 1 [employer] (PPO) [id number] F Naomie Greenburn [id number] Naomie Miner Notes Date Note Type Note Provider Name and Address Organization Details Recorded Time 04/23/2024 text/html comes in she has been doing fine Andrew Guerra MD Attn: Accounting,[address] [facility], [place], [address], [facility] 04/27/2024 12:20:45 OBGyn Episode No OBEpisode recorded.
[2025-05-29] MEDS: TETRACAINE HCL 0.5% OPHTH SOLN 4 ML BTL 1 DROP EACH EYE (00:02)
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
[2025-05-29] MEDS: CIPROFLOXACIN HCL 0.3% OP SOLN 2.5 ML BTL 2 DROP RIGHT EYE (02:11)
[2025-05-29 02:29] VITALS: BP 125/82; PULSE 62; RESP 14; O2SAT 100
== END 2025-05-29 02:31 | disposition home or self-care (01) ==
PROVIDERS: Emergency Provider Registered Nurse; PCP Internal Medicine
DX: T54.3X1A Toxic effect of corrosive alkalis and alkali-like substances, accidental (unintentional), initial encounter (principal); T26.81XA Corrosions of other specified parts of right eye and adnexa, initial encounter
CPT/HCPCS: 99283; J7120

== ENCOUNTER 2025-08-17 08:17 | Outpatient (CLI) | payer BC, SELFPAY ==
--- NOTE | ~2025-08-17 | US_ITS ---
ULTRASOUND ABDOMEN LIMITED (RIGHT UPPER QUADRANT) Clinical History: elevated liver enzymes Comparison: Ultrasound 08/08/2024 Technique: Right upper quadrant sonography Findings: Liver: Normal size. Normal echotexture. No intrahepatic biliary ductal dilatation. Normal hepatopedal flow main portal vein. Common Duct: Normal caliber. 5 mm. Gallbladder: No stones. No wall thickening. No pericholecystic fluid. Pancreas: Unremarkable. IMPRESSION: 1. No acute findings. Reviewed, dictated and finalized at location [facility]. [facility] AGENCY DIRECTOR IMPRESSION: 1. No acute findings.
== END 2025-08-17 08:18 | disposition home or self-care (01) ==
LOC: GOSHIMG 08:17
PROVIDERS: PCP Internal Medicine; Visit Provider Internal Medicine
DX: R74.8 Abnormal levels of other serum enzymes (principal)
CPT/HCPCS: 76705